=== PATIENT | male | born 1950 | race Caucasian/White ===

== ENCOUNTER 2016-11-29 10:39 | Day surgery (SDC) | payer MEDICARE ==
[~2016-11-29] VITALS: Ht 185.4 cm; Wt 125.0 kg
[~2016-11-29 10:39] MED LIST: APIX5TAB PO; ASPI1TAB69 PO; ATOR1TAB18 PO; CARV12.52 PO; FURO1TAB60 PO; FURO1TAB62 PO; GLIP10TA6 PO; SACU1TAB PO; VICT18IN SQ
[2016-11-29] MEDS ORDERED: SODIUM CHLORID 0.9% 500 ML INJ 500 ML IV SCH (11:00)
[2016-11-29 11:14] VITALS: BP 141/97; PULSE 77; RESP 17; TEMP 97.8; O2SAT 100
[2016-11-29] MEDS ORDERED: LORazepam 1 MG TAB SL SCH (11:15)
[2016-11-29] MEDS ORDERED: CHLORHEXIDINE GLUCONATE 2 % 1 PACK (2 CLOTHS) TOPICAL PRN (11:15)
[2016-11-29] MEDS ORDERED: SODIUM CHLORID 0.9% 500 ML IV PRN (11:15)
[2016-11-29] MEDS ORDERED: POVIDONE IODINE 5% (ANTISEPSIS KIT) 4 APPLICATIONS EACH NARE PRN (11:15)
[2016-11-29] MEDS ORDERED: METOPROLOL TARTRATE 25 MG TAB PO PRN (11:15)
[2016-11-29] MEDS ORDERED: INSULIN HUMAN REGULAR 1,000 UNITS/10 ML VIAL SQ PRN (11:15)
[2016-11-29] MEDS ORDERED: LACTATED RINGER'S 1000 ML IV PRN (11:15)
[2016-11-29] MEDS ORDERED: ISOS10TA PO (11:24)
[2016-11-29 11:54] LABS: AUTOMATED NEUTROPHIL # 4.2 TH/MM3 (1.8-7.7); BASOPHIL % 0.8 % (0.0-2.0); EOSINOPHIL # 0.1 TH/MM3 (0-0.4); EOSINOPHIL % 2.2 % (0.0-4.0); HEMO FLAGS DIFF FINAL; LYMPH % 14.9 % (9.0-44.0); LYMPHOCYTE # 0.8 TH/MM3 (1.0-4.8); MEAN CORPUSCULAR HEMOGLOBIN 29.8 PG (27.0-34.0); MEAN CORPUSCULAR HGB CONC 33.5 % (32.0-36.0); MONO % 8.3 % (0.0-8.0); NEUT % 73.8 % (16.0-70.0); PLATELET COUNT 159 TH/MM3 (150-450); RED BLOOD COUNT 5.06 MIL/MM3 (4.50-5.90); RED CELL DISTRIBUTION WIDTH 14.5 % (11.6-17.2); WHITE BLOOD COUNT 5.6 TH/MM3 (4.0-11.0)
[2016-11-29 12:04] LABS: APTT (PATIENT) 27.6 SEC (24.3-30.1); PROTHROMBIN TIME - PATIENT 10.9 SEC (9.8-11.6)
[2016-11-29 12:06] LABS: BICARBONATE 26.9 MEQ/L (21.0-32.0); POTASSIUM 4.2 MEQ/L (3.5-5.1)
[2016-11-29] MEDS ORDERED: fentaNYL CITRATE 250 MCG/5 ML AMP ONE (15:06)
[2016-11-29] MEDS ORDERED: HEPARIN-D5W 25,000 U/250 ML 250 ML ONE (15:07)
[2016-11-29] MEDS ORDERED: ISOPROTERENOL HCL 1 MG/5 ML AMP ONE (15:07)
[2016-11-29] MEDS ORDERED: PROTAMINE SULFATE 50 MG/5 ML VIAL ONE ×2 (15:07→17:39)
[2016-11-29] MEDS ORDERED: HEPARIN SODIUM - IV 10,000 UNITS/10 ML VIAL ONE (15:07)
[2016-11-29] MEDS ORDERED: LEVOFLOXACIN 500 MG PREMIX INJ 100 ML IV ONE (15:07)
[2016-11-29] MEDS ORDERED: HEPARIN-NS/PF INJ 2,000 ML ONE (15:08)
[2016-11-29] MEDS ORDERED: VANCOMYCIN HCL 1000 MG VIAL ONE (16:12)
--- NOTE | 2016-11-29 17:53 | CATHPROC ---
[facility] HIS Report Study Information Study Number Admission Scheduled Start Study Start [id number] Nov 29 2016 10:39AM 11/29/2016 Nov 29 2016 2:44PM Amber Service Electrophysiology Study Admit Source Facility Department Other [facility] - Repairer Physician and Clinical Staff Initial Coni Gilliland Transport Pilot Aguilar Nails,RT(R) Other Anesthesia, ULTIMATE HOOPS REFEREE Recorder Genia Quijano,RN Scrub Leonarda Shields,WEB CONSULTANT TECH2 Procedures Performed Procedure Location (Site) Vessel Name Ablation Procedure Cardioversion ICE CATHETER INSERT RA Atruim RF Ablation LT. ATRIUM LT. [facility] Equipment Time [employer] Worker Description Size Mfg Part Number Used/Scraped NEEDLE, TRANSSEPTAL NRG 98 15:18 [facility] [id number] Used C1 [employer]/ EP 15:18 KIT, TRANSDUCER / AFIB [id number] Used PACER [id number] CATHETER, TACTICATH ABLAT BUNDLE 15:18 BUNDLE-ST. TAE Used 65 BUNDLE *[id number] BUNDLE 17543-MEACDE CATHETER, FR7 OPTIMA SPIRAL 15:18 BUNDLE-ST. TAE FR7 *[id number]- Used BUNDLE BUNDLE [id number] 15:18 BUNDLE-ST. TAE CATHETER, JSN, QUAD BUNDLE FR 5 *[id number]- Used BUNDLE [id number] 15:18 BUNDLE-ST. TAE CATHETER, JSN, QUAD BUNDLE FR 5 *[id number]- Used BUNDLE 98887-[id number] SET, [place]OL [place] TUBING 15:18 BUNDLE-ST. TAE *[id number]- Used BUNDLE BUNDLE SHEATH, FR8.5 STEERABLE SM 15:18 BUNDLE-ST. TAE 71CM [id number] Used 71CM BUNDLE COVER, TRANSDUCER CABLE 15:18 [employer] [id number] Used ACUNAV 15:18 CORDIS/PACER SHEATH, FR10 PIETER 11CM FR 10 [id number] Used 15:18 CORDIS/PACER SHEATH, FR9 PIETER 11CM FR 9 [id number] Used [id number] 15:18 [employer] PACK, CCL CUSTOM * Used *[id number] 15:18 MEDLINE PACER BAUER, LIMB * 8300 *[id number] Used [id number] 15:18 [employer] MEDICAL SHEATH, FR4.5 PRELUDE 11CM FR 4.5 Used [id number] 15:18 NAMIC TUBING, HIGH PRESSURE 48" 48" Used *[id number] 15:18 NAMIC TUBING, HIGH PRESSURE 48" 48" Used *[id number] 15:18 [employer] MED[employer] BLANKET,WARM AIR CCL * Used *[id number] 15:18 ST. [facility] MEDICAL ELECTRODE KIT, TL X SURFACE * [id number] Used [id number] 15:18 [facility] MEDICAL SHEATH, EPS, FR6 FAST CATH FR 6 Used *[id number] 15:18 [facility] MEDICAL SHEATH, EPS, FR7 FAST CATH FR 7 [id number] Used 106639 15:18 [facility] MEDICAL SHEATH, EPS, FR8 FAST CATH FR 8 Used *[id number] CATHETER, ACUNAV FR10 ICE [id number] 16:08 KATRIN FR 10 Used (KATRIN) *[id number] [facility] PAD, ELECTROSURGICAL 15:18 * [id number] *[id number] Used SURGICAL GROUNDING (BLUE) History: Allergies Allergy Reaction lisinopril codeine trazodone rosuvastatin Labs Hgb (g/dl) Hct (%) RBC (MIL/MM3) WBC (l/cumm) Platelets (thousands) 11.60-17.00 35.00-51.00 4.00-5.90 4.00-11.00 150.00-450.00 15.0 45 5 5.6 159 Glucose (mg/dl) BUN (mg/dl) Creatinine (mg/dl) BUN:Creatinine (1:x) 74.00-106.00 7.00-18.00 0.50-1.30 10.00-20.00 172 23 1.4 16.4 Na (meq/l) K (meq/l) 136.00-145.00 3.50-5.10 136 4.2 INR (PTT:PT) 0.90-1.10 1 Medication Medication Total Dose (Bolus/Oral) Medication Total Dosage/Unit 1% XYLOCAINE 40 mL HEPARIN 76288 units PROTAMINE 80 mg Medications (Bolus/Oral) Medication Time Given Dosage/Unit Administered By Reason 1% XYLOCAINE 11/29/2016 4:00:07 PM 20 mL Coni Mary 20 mL 1% XYLOCAINE given in lab by Coni Mary in Left Groin via Subcutaneous. Ordered by Usman, Muhammad nscy. 1% XYLOCAINE 11/29/2016 4:06:48 PM 20 mL Coni Mary 20 mL 1% XYLOCAINE given in lab by Coni Mary in Right Groin via Subcutaneous. Ordered by Selvin Mary. HEPARIN 11/29/2016 4:12:20 PM 70147 units Anesthesia, ULTIMATE HOOPS REFEREE 61460 units HEPARIN given in lab by Anesthesia, ULTIMATE HOOPS REFEREE in Right Antecubital via Peripheral IV. Ordered by Coni Mary. HEPARIN 11/29/2016 4:28:01 PM 4000 units Anesthesia, ULTIMATE HOOPS REFEREE 4000 units HEPARIN given in lab by Anesthesia, ULTIMATE HOOPS REFEREE in Right Antecubital via Peripheral IV. Ordered Coni Lane. HEPARIN 11/29/2016 4:42:54 PM 3000 units Anesthesia, ULTIMATE HOOPS REFEREE 3000 units HEPARIN given in lab by Anesthesia, ULTIMATE HOOPS REFEREE in Right Antecubital via Peripheral IV. Ordered Coni Lane. HEPARIN 11/29/2016 4:57:22 PM 2000 units Anesthesia, ULTIMATE HOOPS REFEREE 2000 units HEPARIN given in lab by Anesthesia, ULTIMATE HOOPS REFEREE in Right Antecubital via Peripheral IV. Ordered Coni Lane. PROTAMINE 11/29/2016 5:30:00 PM 40 mg Anesthesia, ULTIMATE HOOPS REFEREE As per physicians verb al order 40 mg PROTAMINE given in lab by Anesthesia, ULTIMATE HOOPS REFEREE via Peripheral IV. Ordered by Coni Mary. Reason: As per physicians verbal order. PROTAMINE 11/29/2016 5:43:19 PM 40 mg Anesthesia, ULTIMATE HOOPS REFEREE As per physicians verb al order 40 mg PROTAMINE given in lab by Anesthesia, ULTIMATE HOOPS REFEREE via Peripheral IV. Ordered by Coni Mary. Reason: As per physicians verbal order. Medication (Drip) Medication Time Given Dosage/Unit Concentration/Unit Diluent (ml) Solution HEPARIN DRIP 11/29/2016 4:29:09 PM 1500 units/hr 04943 units 250 D5W 1500 units/hr HEPARIN DRIP given in lab by Anesthesia, ULTIMATE HOOPS REFEREE in Right Antecubital via Peripheral IV. P ump/Drip Flow = 15 ml/hr [place] [address] units in 250 ml. Ordered by Coni Mary. ISUPREL 11/29/2016 5:08:50 PM 5 mcg/min 1 mg 250 NaCl .9 5 mcg/min ISUPREL given in lab by Anesthesia, ULTIMATE HOOPS REFEREE via Peripheral IV. Pump/Drip Flow = 75 ml/hr using NaCl .9 with a concentration of 1 mg in 250 ml. Ordered by Coni Mary. Reason: As per physicians verbal order. LEVAQUIN 11/29/2016 3:30:42 PM 100 mL/hr 500 100 NaCl .9 100 mL/hr LEVAQUIN given by Anesthesia, ULTIMATE HOOPS REFEREE via Peripheral IV. Pump/Drip Flow = 0 ml/hr using NaCl . 9 with a concentration of 500 in 100 ml. Ordered by Coni Mary. Reason: As per physicians verbal order. Initial Case Assessment Cardiovascular HR Rhythm NIBP Chest Pain 89 sf 143/77 0 Edema Present Skin color Skin None Normal Warm Dry Circulatory - Right Pulses Dorsalis Pedis 2 Scale (0,1,2,3,4,d) Circulatory - Left Pulses Dorsalis Pedis 2 Scale (0,1,2,3,4,d) Circulatory - Lower Extremities Color Lower Right Color Lower Left Normal Normal Neurological State Oriented to time-place- Alert Moves all extremities person Respiration - General Respiration Rate SpO2 (%) (B/min) 20 99 Final Case Assessment Cardiovascular HR Rhythm NIBP Chest Pain 85 sr 137/72 0 Edema Present Skin color Skin None Normal Warm Dry Circulatory - Right Pulses Dorsalis Pedis 1 Scale (0,1,2,3,4,d) Circulatory - Left Pulses Dorsalis Pedis 1 Scale (0,1,2,3,4,d) Circulatory - Lower Extremities Color Lower Right Color Lower Left Normal Normal Neurological State Lethargic Moves all extremities Respiration - General Respiration Rate SpO2 (%) O2 (lpm) (B/min) 16 97 50 Respiration - Ventilator Type Intubation Type ET(oral) Chronological Log Time Study Chronological Log 15:03:18 Patient arrived via Bed. 15:03:18 Patient Name, D.O.B, / Armband Verified By R.N. 15:03:19 Consent signed by the physician and the patient and verified by the Repairer staff. 15:03:20 Pre-op and post- op instructions given; patient acknowledges understanding of instructions. 15:03:25 Verbal Stimulation=2 Physical Stimulation=2 Airway=2 Respiration=2 TOTAL=8. (0=absent, 1=li mited, 2=present) 15:03:35 Patient has been NPO for More than 6Hrs. Skin Breakdown- generalized bruising and scabs vicente to knees. Right foot plantar aspect with dsg to lateral ball of foot 15:03:36 and scabs intact to toes. 15:03:37 Patient Warmer Placed on the Table. 15:03:38 Disposable Defibrillator Pads Placed On Patient. 15:03:40 Irene Prominences Protected 15:03:41 A # 20 IV was noted in the Forearm (left). Grade = 0 0.9ns kvo 15:03:42 A # 20 IV was noted in the Forearm (right). Grade = 0 0.9ns kvo 15:03:43 History and physical on the chart or being dictated. Assessment: Initial Case, HR=89 BPM, Rhythm=sf, ZDUW=283/77 mmhg, Chest Pain=0, Edema=None, Col or=Normal, Skin = Warm, Dry Right Pulses: Los Ped=2 Left Pulses: Los Ped=2 15:16:20 Lower Right Extremities: Color=Normal Lower Left Extremities: Color=Normal Neurological: State=Alert, Ox3, DANIELS Respiration: Resp=20 B/min, SpO2=99 % 15:18:04 Table restraints applied according to hospital policy 15:25:05 Dr Chacko arrived for Intubation/General Anesthesia. 14 Fr lan inserted w/o difficulty. C lear yellow urine obtained. 15:26:15 Tachy therapy off by [facility] rep as per Dr Mary 100 mL/hr LEVAQUIN given by Anesthesia, ULTIMATE HOOPS REFEREE via Peripheral IV. Pump/Drip Flow = 0 ml/hr using NaCl .9 with a 15:30:42 concentration of 500 in 100 ml. Ordered by Coni Mary. Reason: As per physicians verbal orde r. 15:33:13 14 FR Lan catheter placed by Dung Quijano RN. 15:35:48 Bilateral groins prepped with 2% chlorhexidine, and draped after a 3 min. waiting time. 15:43:25 MD notified Patient ready 15:53:51 MD arrived. 15:54:30 Reference ECG taken Time Out. Correct patient, procedure, procedure equipment, site and side verified with physicia n present. Time 15:55:44 concurred by MD, individual staff and ULTIMATE HOOPS REFEREE. Time Out #2 - Consents verified, patient in correct position, all results are labled and displa yed, safety precautions 15:55:57 taken, antibiotics administered. Time out concurred by MD, individual staff and ULTIMATE HOOPS REFEREE in procedu re 15:56:21 Case Start 15:56:35 ALEXY in progress. 15:58:23 ALEXY completed, proceeding with A-fib Ablation. 16:00:07 20 mL 1% XYLOCAINE given in lab by Coni Mary in Left Groin via Subcutaneous. Ordered by Coni Mary. 16:01:38 Vascular access was obtained in the Fem Vein (left). 16:01:47 Vascular access was obtained in the Fem Vein (left). 16:01:53 Vascular access was obtained in the Fem Vein (left). 16:02:08 Vascular access was obtained in the Fem Art (left). A SHEATH, FR4.5 PRELUDE 11CM FR 4.5 was advanced into the Fem Art (left) using the Modified Jeannine cristine technique. 16:02:45 0.9ns pressure bag connected. 16:05:00 A SHEATH, EPS, FR6 FAST CATH FR 6 was advanced into the Fem Vein (left) using the Modified Seldinger technique. 16:05:23 A SHEATH, EPS, FR7 FAST CATH FR 7 was advanced into the Fem Vein (left) using the Modified Seldinger technique. 16:06:31 A SHEATH, FR10 PIETER 11CM FR 10 was advanced into the Fem Vein (left) using the Modified S eldinger technique. 16:06:48 20 mL 1% XYLOCAINE given in lab by Coni Mary in Right Groin via Subcutaneous. Ordered b Coni García. 16:07:25 Vascular access was obtained in the Fem Vein (right). 16:07:28 A SHEATH, EPS, FR8 FAST CATH FR 8 was advanced into the Fem Vein (right) using the Modified Seldinger technique. 16:07:42 CATHETER, ACUNAV FR10 ICE (KATRIN) FR 10 Was Postioned. A CATHETER, JSN, QUAD BUNDLE FR 5 was advanced vis Fem Vein (left) and placed in the CS. Placem ent was visually 16:07:57 confirmed under fluoroscopy. A SHEATH, FR8.5 STEERABLE SM 71CM BUNDLE 71CM was exchanged in the Fem Vein (right). This was n ecessary in 16:11:14 order for catheter support. 16:11:24 baylis needle inserted into the agilis 86639 units HEPARIN given in lab by Anesthesia, ULTIMATE HOOPS REFEREE in Right Antecubital via Peripheral IV. Or dered by Usman, 16:12:20 Coni. 16:12:50 A eps was advanced to the right atrium and passed through the septal wall to the left atriu m. with baylis needle A CATHETER, FR7 OPTIMA SPIRAL BUNDLE FR7 was advanced vis Fem Vein (right) and placed in the LA . Placement 16:16:37 was visually confirmed under fluoroscopy. mapping in progress A CATHETER, TACTICATH ABLAT 65 BUNDLE was advanced vis Fem Vein (right) and placed in the LA. P lacement was 16:25:03 visually confirmed under fluoroscopy. 16:27:25 ACT (Normal Range 90-180) = 259 16:28:01 4000 units HEPARIN given in lab by Anesthesia, ULTIMATE HOOPS REFEREE in Right Antecubital via Peripheral IV. Ordered by Coni Mary. 1500 units/hr HEPARIN DRIP given in lab by Anesthesia, ULTIMATE HOOPS REFEREE in Right Antecubital via Peripheral IV. Pump/Drip Flow = 16:29:09 15 ml/hr [place] [address] units in 250 ml. Ordered by Coni Mary. RF Ablation of the LT. ATRIUM with a CATHETER, TACTICATH ABLAT [address] Mary is doing to uch up within 16:30:41 the left atruim to include lipv, lspv, ripv, rspv, and anywhere else in the left atruim. 16:38:26 Activated Clotting Time Drawn 16:42:46 ACT (Normal Range 90-180) = 313 16:42:54 3000 units HEPARIN given in lab by Anesthesia, ULTIMATE HOOPS REFEREE in Right Antecubital via Peripheral IV. Ordered by Coni Mary. 16:43:34 continuing ablation 16:51:28 Activated Clotting Time Drawn 16:56:45 ACT (Normal Range 90-180) = 331 16:57:22 2000 units HEPARIN given in lab by Anesthesia, ULTIMATE HOOPS REFEREE in Right Antecubital via Peripheral IV. Ordered by Coni Mary. continuing ablation 17:00:18 17:04:02 Activated Clotting Time Drawn 17:05:24 ECG rhythm of AF noted. Patient cardioverted at 200 joules. Success synch 17:06:12 Ablation complete. 5 mcg/min ISUPREL given in lab by Anesthesia, ULTIMATE HOOPS REFEREE via Peripheral IV. Pump/Drip Flow = 75 ml/hr using NaCl .9 with 17:08:50 a concentration of 1 mg in 250 ml. Ordered by Coni Mary. Reason: As per physicians verbal o rder. 17:11:07 ACT (Normal Range 90-180) = 335 17:18:50 Isuprel off 17:25:18 Catheters removed without difficulty. 17:25:55 Tachy therapy back on A SHEATH, FR9 PIETER 11CM FR 9 was exchanged in the Fem Vein (right). This was necessary in ord er to achieve 17:27:42 vascular hemostasis. 17:28:34 Ablation procedure performed: AFIB. 17:28:38 EP Procedure was performed. 17:28:56 Sheath(s) left in place, secured, 0.9ns kvo connected, and will be removed in Holding Area 17:30:00 Case End 40 mg PROTAMINE given in lab by Anesthesia, ULTIMATE HOOPS REFEREE via Peripheral IV. Ordered by Coni Mary. R ama: As per 17:30:00 physicians verbal order. 17:30:02 Sterile dressing applied to site 17:30:03 No case complications noted. 17:30:04 Cine recording checked. 17:30:41 PACU called. Spoke to Fredrick 17:30:47 Bedside Report will be given. Assessment: Final Case, HR=85 BPM, Rhythm=sr, SYJC=133/72 mmhg, Chest Pain=0, Edema=None, Pequea r=Normal, Skin = Warm, Dry Right Pulses: Los Ped=1 Left Pulses: Los Ped=1 17:31:54 Lower Right Extremities: Color=Normal Lower Left Extremities: Color=Normal Neurological: State=Lethargic, DANIELS Respiration: Resp=16 B/min, SpO2=97 %, O2=50 lpm, Type=ET(Oral) 17:37:50 Activated Clotting Time Drawn 17:41:11 ACT (Normal Range 90-180) = 260 40 mg PROTAMINE given in lab by Anesthesia, ULTIMATE HOOPS REFEREE via Peripheral IV. Ordered by Coni Mary. Reason: As per 17:43:19 physicians verbal order. 17:49:57 Activated Clotting Time Drawn 17:50:39 Patient moved to stretcher. Pt alert, maew 17:52:30 ACT (Normal Range 90-180) = 132 End Study - Contrast Media Used In Study Contrast Total Opened (mL) Total Used (mL) Total Wasted (mL) Unspecified 0 0 0 End Study - Maximum Contrast Load Max Contrast Load (mL) 450.0 End Study - Radiation Exposure Fluoro Time (minutes) 2.4 End Study - Patient Disposition Complications Transferred To Interventional Outcome No Telemetry Bed successful
[2016-11-29] MEDS ORDERED: FUROSEMIDE 40 MG/4 ML VIAL ONE (17:55)
[2016-11-29] MEDS ORDERED: DO NOT ADM ANY ANTICOAGULANT DRUGS PRN (18:05)
[2016-11-29 19:00] VITALS: BP 158/105; PULSE 83; PULSE 85; RESP 16; TEMP 95.9
[2016-11-29] MEDS ORDERED: BACITRACIN OINT 0.9 GM PKT TOP ONE (19:15)
[2016-11-29] MEDS ORDERED: ONDANSETRON HCL 4 MG/2 ML VIAL IV PUSH PRN (19:15)
[2016-11-29] MEDS ORDERED: METOCLOPRAMIDE HCL 10 MG/2 ML VIAL IV PUSH PRN (19:15)
[2016-11-29] MEDS ORDERED: SODIUM CHLOR 0.9% 250 ML INJ 250 ML IV PRN (19:15)
[2016-11-29] MEDS ORDERED: LORazepam 2 MG/ML VIAL IV PUSH PRN (19:15)
[2016-11-29] MEDS ORDERED: LIDOCAINE HCL 1% 50 ML VIAL INFIL PRN (19:15)
[2016-11-29] MEDS ORDERED: ATROPINE SULFATE 1 MG/ML VIAL IV PUSH PRN (19:15)
[2016-11-29] MEDS ORDERED: oxyCODONE/ACETAMINOPHEN 5 MG/325 MG TAB PO PRN ×2 (19:15)
[2016-11-29 20:00] VITALS: PULSE 84; PULSE 87
[2016-11-29] MEDS: SACUBITRIL/VALSARTAN 24 MG-26 MG TAB PO SCH (20:22)
[2016-11-29] MEDS: CARVEDILOL 12.5 MG TAB PO SCH (20:22)
[2016-11-29 21:00] VITALS: PULSE 86
[2016-11-29] MEDS ORDERED: FUROSEMIDE 20 MG TAB PO SCH (21:00)
[2016-11-29 22:00] VITALS: PULSE 88
[2016-11-29 23:00] VITALS: BP 158/105; PULSE 90; PULSE 91; RESP 16; TEMP 97
[2016-11-30] VITALS (12 sets, daily range): BP systolic 136–143; BP diastolic 90–95; PULSE 76–91; RESP 16–18; TEMP 97.6–98; O2SAT 98
[2016-11-30 06:57] LABS: APTT (PATIENT) 25.7 SEC (24.3-30.1); INTERNATIONAL NORMALIZED RATIO 1.1 RATIO; PROTHROMBIN TIME - PATIENT 11.8 SEC (9.8-11.6)
--- NOTE | 2016-11-30 07:03 | PD.CARD.PN ---
Subjective Subjective Remarks Feels okay. Objective Medications Current Medications Medications (Trade) Dose Ordered Sig/Guille Route Start Time Stop Time Status Last Admin Sodium Chloride 500 ml @ 30 mls/hr [id number] IV 11/29/16 11:00 (Ativan) 1 mg PBX MECHANIC SL 11/29/16 11:15 12/02/16 11:14 11/29/16 15:00 Lactated Ringer's 1,000 ml @ 30 mls/hr Q24H PRN IV 11/29/16 11:15 12/02/16 11:14 Sodium Chloride 500 ml @ 30 mls/hr [id number] PRN IV 11/29/16 11:15 12/02/16 11:14 (Lopressor) 25 mg PBX MECHANIC PRN PO 11/29/16 11:15 12/02/16 11:14 (Betadine 5% Antisepsis Kit) 1 applic PBX MECHANIC PRN EACH NARE 11/29/16 11:15 12/02/16 11:14 (Chlorhexidine 2% Cloth) 3 pack PBX MECHANIC PRN TOPICAL 11/29/16 11:15 12/02/16 11:14 (NovoLIN R INJ) See Protocol Table ... PBX MECHANIC PRN SQ 11/29/16 11:15 12/02/16 11:14 (Percocet 5-325 Mg) 1 tab Q4H PRN PO 11/29/16 19:15 (Percocet 5-325 Mg) 2 tab Q4H PRN PO 11/29/16 19:15 (Ativan Inj) 0.5 mg UNSCH PRN IV PUSH 11/29/16 19:15 11/30/16 19:14 (Atropine Inj) 0.5 mg UNSCH PRN IV PUSH 11/29/16 19:15 Sodium Chloride 250 ml @ 500 mls/hr ONCE PRN IV 11/29/16 19:15 11/30/16 19:14 (Reglan Inj) 10 mg Q4H PRN IV PUSH 11/29/16 19:15 (Zofran Inj) 4 mg Q4H PRN IV PUSH 11/29/16 19:15 (Xylocaine 1% Inj (50 ml)) 10 ml UNSCH PRN INFIL 11/29/16 19:15 11/30/16 19:14 (Eliquis) 5 mg BID PO 11/30/16 21:00 (Coreg) 12.5 mg BID PO 11/29/16 21:00 11/29/16 20:22 (Lasix) 20 mg HS PO 11/29/16 21:00 11/29/16 20:22 (Glucotrol) 10 mg TIDAC PO 11/30/16 08:00 (Isordil) 10 mg DAILY PO 11/30/16 09:00 (Entresto 24-26 Mg) 1 tab BID PO 11/29/16 21:00 11/29/16 20:22 Patient Own Medication PT OWN MED: Liraglut... DAILY SQ 11/30/16 09:00 Future Hold Miscellaneous Information ALL NURSING DEPARTME... UNSCH PRN .XX 11/29/16 18:05 11/30/16 18:04 Vital Signs / I&O Vital Signs Date Time Temp Pulse Resp B/P (MAP) Pulse Ox O2 Delivery O2 Flow Rate FiO2 11/30/16 06:11 91 11/30/16 05:00 90 11/30/16 04:00 90 11/30/16 03:00 90 11/30/16 03:00 97.6 76 16 136/90 (105) 11/30/16 02:00 90 11/30/16 01:00 90 11/30/16 00:00 91 11/29/16 23:00 97.0 91 16 158/105 (122) 11/29/16 23:00 90 11/29/16 22:00 88 11/29/16 21:00 86 11/29/16 20:00 87 11/29/16 19:25 97.1 81 17 131/79 (96) 96 Nasal Cannula 4 11/29/16 19:00 80 15 126/80 (95) 96 Nasal Cannula 4 11/29/16 19:00 95.9 85 16 158/105 (122) 11/29/16 18:45 79 16 137/83 (101) 96 Nasal Cannula 4 11/29/16 18:30 96.0 79 16 135/83 (100) 96 Nasal Cannula 4 11/29/16 18:15 80 16 138/97 (111) 93 Nasal Cannula 4 11/29/16 18:02 95.9 85 14 161/97 (118) 92 Nasal Cannula 4 11/29/16 11:14 97.8 77 17 141/97 (112) 100 I/O 11/29/16 11/29/16 11/29/16 11/30/16 11/30/16 11/30/16 07:00 15:00 23:00 07:00 15:00 23:00 Intake Total 840 ml Output Total 650 ml Balance 190 ml Intake Oral 840 ml Output Urine Total 650 ml Physical Exam GENERAL: Well-nourished, well-developed patient. SKIN: Warm and dry. Groin sites soft without bruising or bleeding. HEAD: Normocephalic. EYES: No scleral icterus. No injection or drainage. NECK: Supple, trachea midline. No JVD or lymphadenopathy. CARDIOVASCULAR: Regular rate and rhythm without murmurs, gallops, or rubs. RESPIRATORY: Breath sounds equal bilaterally. No accessory muscle use. GASTROINTESTINAL: Abdomen soft, non-tender, nondistended. EXTREMITIES: No cyanosis, or edema. NEUROLOGICAL: Awake, alert, and oriented x 3. Non-focal. Laboratory Laboratory Tests Test 11/29/16 11:05 11/30/16 06:05 White Blood Count 5.6 TH/MM3 Red Blood Count 5.06 MIL/MM3 Hemoglobin 15.1 GM/DL Hematocrit 45.0 % Mean Corpuscular Volume 89.0 FL Mean Corpuscular Hemoglobin 29.8 PG Mean Corpuscular Hemoglobin Concent 33.5 % Red Cell Distribution Width 14.5 % Platelet Count 159 TH/MM3 Mean Platelet Volume 8.8 FL Neutrophils (%) (Auto) 73.8 % Lymphocytes (%) (Auto) 14.9 % Monocytes (%) (Auto) 8.3 % Eosinophils (%) (Auto) 2.2 % Basophils (%) (Auto) 0.8 % Neutrophils # (Auto) 4.2 TH/MM3 Lymphocytes # (Auto) 0.8 TH/MM3 Monocytes # (Auto) 0.5 TH/MM3 Eosinophils # (Auto) 0.1 TH/MM3 Basophils # (Auto) 0.0 TH/MM3 CBC Comment DIFF FINAL Differential Comment Prothrombin Time 10.9 SEC 11.8 SEC Prothromb Time International Ratio 1.0 RATIO 1.1 RATIO Activated Partial Thromboplast Time 27.6 SEC 25.7 SEC Blood Urea Nitrogen 23 MG/DL Creatinine 1.41 MG/DL Random Glucose 172 MG/DL Calcium Level 8.6 MG/DL Sodium Level 136 MEQ/L Potassium Level 4.2 MEQ/L Chloride Level 103 MEQ/L Carbon Dioxide Level 26.9 MEQ/L Anion Gap 6 MEQ/L Estimat Glomerular Filtration Rate 50 ML/MIN Assessment and Plan Problem List: (1) Atrial fibrillation ICD Codes: I48.91 - Unspecified atrial fibrillation Status: Acute Plan: Normal sinus rhythm on telemetry status post ablation. (2) S/P ablation of atrial fibrillation ICD Codes: Z98.890 - Other specified postprocedural states; Z86.79 - Personal history of other diseases of the circulatory system Status: Acute Plan: Discharge home, continue eliquis. Follow-up with Dr. Mary in 3 weeks per my discussion with him. Problem Qualifiers (1) Atrial fibrillation: Qualified Codes: I48.0 - Paroxysmal atrial fibrillation Christina Soliman Nov 30, 2016 07:03
[2016-11-30] MEDS ORDERED: glipiZIDE 10 MG TAB PO SCH (08:00)
[2016-11-30] MEDS: CARVEDILOL 12.5 MG TAB PO SCH (08:10)
[2016-11-30] MEDS: SACUBITRIL/VALSARTAN 24 MG-26 MG TAB PO SCH (08:10)
[2016-11-30] MEDS ORDERED: LIRAGLUTIDE 0.6 MG SQ SCH (09:00)
[2016-11-30] MEDS ORDERED: ISOSORBIDE DINITRATE 10 MG TAB PO SCH (09:00)
--- NOTE | 2016-11-30 20:44 | EKG ---
Date Performed: 11/30/2016 Time Performed: 05:40:26 PTAGE: 66 years EKG: Sinus rhythm with 1st degree A-V block Left axis deviation IV conduction defect Possible anteroseptal infarct - a ge undetermined Lateral ST-T changes are nonspecific Low QRS voltages in limb leads Abnormal ECG PREVIOUS TRACING : 11/29/2016 23.23 Compared to prior tracing no significant change DOCTOR: Benjamin Brenner Interpretating Date/Time 11/30/2016 20:40:52
--- NOTE | 2016-11-30 20:47 | EKG ---
Date Performed: 11/29/2016 Time Performed: 23:23:12 PTAGE: 66 years EKG: Sinus rhythm with 1st degree A-V block Left axis deviation Left bundle branch block Possible inferior infarct - a ge undetermined Low QRS voltages in limb leads Abnormal ECG PREVIOUS TRACING : 11/29/2016 11.20 Compared to prior tracing no significant change DOCTOR: Benjamin Brenner Interpretating Date/Time 11/30/2016 20:44:07
[2016-11-30] MEDS ORDERED: APIXABAN 5 MG TABLET PO SCH (21:00)
--- NOTE | 2016-11-30 21:05 | EKG ---
Date Performed: 11/29/2016 Time Performed: 11:20:04 PTAGE: 66 years EKG: atrial fibrillation Left axis deviation IV conduction defect Inferior infarct - age undete rmined Possible septal infarct - age undetermined Lateral ST-T changes may be due to myocardial ische imn Low QRS voltages in precordial leads Abnormal ECG PREVIOUS TRACING : 01/15/2016 05.16 Compared to prior tracing no significant change DOCTOR: Benjamin Brenner Interpretating Date/Time 11/30/2016 20:55:42
--- NOTE | 2016-12-16 12:30 | PD.CARD ---
Atrial Fibrillation Ablation PROCEDURE DATE: Nov 29, 2016 PROCEDURES PERFORMED: 1. Electrophysiology study on Isuprel infusion 2. CS cannulation 3. 3-D mapping 4. Transseptal approach 5. Right and left heart catheterization 6. Intracardiac echo 7. Radiofrequency ablation of atrial fibrillation 8. Pulmonary vein isolation 9. Posterior wall ablation 10. Mitral valve isolation 11. Mitral line creation 12. Left atrial tachycardia ablation 13. Roof line creation 14. Floor line creation 15. Anterior wall ablation 16. Cardioversion INDICATIONS FOR THE PROCEDURE Mr. Ferguson is a 66-year-old male with atrial fibrillation referred for electrophysiology study and ablation. The patient is symptomatic and on anticoagulation. The risks, the nature and the benefits of the procedure were clearly stated to him. The risks include pneumothorax, cardiac perforation, stroke, need for open heart surgery and even . The patient understood and agreed to proceed. DESCRIPTION OF THE PROCEDURE IN DETAIL As written informed consent was obtained prior to esophageal echocardiogram, the patient was kept on the table where he was prepped and draped in the usual sterile fashion. Conscious sedation was initiated and maintained throughout the procedure by the anesthesiologist. Once sedation was verified, the right and left inguinal areas were anesthetized with 2% Xylocaine. Using modified Seldinger technique, the left femoral vein was cannulated on three occasions, three guidewires were advanced. Over the wire a 6, 7 and a 10-Djiboutian Hemaquet were advanced. Then the left femoral artery was cannulated on one occasion, one guidewire was advanced. Over the wire a 4-D[place]ib[place]ian Hemaquet was advanced. Then the right femoral vein was cannulated on one occasion, one guidewire was advanced. Over the wire a 8-D[place]ib[place]ian Hemaquet was advanced. Then under fluoroscopic guidance through the 6 and 7-Djiboutian Hemaquet, two 5-D[place]iboutian Mariam curved quadripolar electrophysiology catheters were advanced and placed around the His as well as coronary sinus. Basic interval was measured. The patient was in atrial fibrillation. Through the 10-Djiboutian Hemaquet, a [employer] Chaudhari AcuNav intracardiac echo catheter was advanced and placed at the right atrium. Multiple view was obtained. There is no pericardial effusion, pulmonary vein was seen, atrial septal was visualized. Then the 8-Djib[place]ian Hemaquet in the right femoral vein was exchanged for Agil[employer] transseptal sheath that was placed all the way to the superior vena cava. Through the sheath a Jenniffer needle was advanced, then the sheath, the dilator and the needle were progressed until foci engaged. Once engaged, the needle was advanced. RF was delivered for 2 seconds. I was able to cross into the left atrium. Once the needle crossed, the dilator was advanced. Once the dilator crossed, the sheath was advanced. Once the sheath crossed, the dilator and the needle were removed. At this point I did flush the system and fluid movement was seen in the left atrium the indicates the sheath is in good position. The patient already received 10,000 units of heparin. The goal is to keep an ACT around 350 during ablation. Then through the sheath a St. Tae 20 pulse circumferential catheter was advanced. Using [employer] endocardial solution mapping system, a two-dimensional configuration of the left atrium was obtained. Points were taken at the left superior and inferior veins, right superior and inferior veins, mitral valve, and appendages. Then through the sheath a St. Tae TactiCath 65cm 3.5mm irrigated tipped mapping and radiofrequency ablation catheter was advanced. Esophageal probe was placed temperature monitoring during ablation. When it increased to 0.5 degrees Celsius above baseline, I moved to a different area of the atrium. First I did isolate the left superior and inferior vein. I did make a big stockbridge around the veins. Posterior was ablated. Then a roof line was created, a floor line was created, a mitral line was isolated, then the mitral valve was isolated. At that point the patient was in left atrial tachycardia. I did create a line from the floor to the roof area, passing by the left atrial appendage. Then the right superior and inferior veins were isolated. I did remap the atrium. There is no significant signal in the atrium. At this point I decided to proceed with cardioversion. A 200 sync biphasic joule was delivered that converted the patient into sinus rhythm. At that point I did advance the circumferential catheter again into the vein. There was no signal into the vein, pacing from the vein showed no conduction to the atrium. Isuprel infusion was initiated at 10 mcg for 15 minutes. No tachyarrhythmia was induced, post Isuprel no tachyarrhythmia was induced. At that point the procedure was complete. All catheters were removed, atrial septal sheath was exchanged for 9-Djiboutian Hemaquet, intracardiac echo showed no pericardial effusion. There is still good flow in the pulmonary vein. The patient is going to be transferred to the recovery room. No incident report. The patient tolerated the procedure. Blood loss was minimal. FINDINGS 1. Electrocardiogram: At baseline the patient was in atrial fibrillation, post procedure the patient was in sinus rhythm. 2. Basic interval: Base cycle length was around 580. Post ablation she was around 860 milliseconds. AH at 124 and HV at 80 milliseconds. 3. Tachyarrhythmia: Atrial fibrillation was mapped and ablated. Atrial tachycardia was ablated. The ablation was successful. CONCLUSION Successful electrophysiology study, mapping, radiofrequency ablation of atrial fibrillation, left atrial tachycardia, pulmonary vein isolation, posterior ablation, mitral valve isolation, mitral line creation, roof line creation, floor line creation, left atrial tachycardia, and cardioversion. COMMENTS AND RECOMMENDATIONS The patient is going to be transferred to the telemetry unit. Will be observed and when stable can be discharged home. Coni Mary MD Dec 16, 2016 12:30
== END 2016-11-30 10:05 | disposition home or self-care (01) ==
LOC: HDOC 10:39 → HDIC 10:40 → HCIS 19:29 → HDOC 11-30 10:05
PROVIDERS: ATTEND Internal Medicine Interventional Cardiology
DX: I48.0 Paroxysmal atrial fibrillation (principal); R94.31 Abnormal electrocardiogram [ECG] [EKG]; E11.9 Type 2 diabetes mellitus without complications; Z79.4 Long term (current) use of insulin; Z79.01 Long term (current) use of anticoagulants
CPT/HCPCS: 00537; 80048; 82948; 85002; 85025; 85610; 85730; 86850; 86900; 86901; 92960; 93005; 93312; 93320; 93325; 93613; 93623; 93656; 93662; C1730; C1731; C1732; C1759; C1766; C2630; J1644; J1940; J1956; J2720; J3010; J3370

== ENCOUNTER 2017-06-13 08:59 | Emergency (ER) | payer MEDICARE ==
[~2017-06-13] VITALS: Ht 185.4 cm; Wt 122.5 kg
[~2017-06-13 08:59] MED LIST changes: -ASPI1TAB69 PO; -ATOR1TAB18 PO; -FURO1TAB60 PO; +ISOS10TA PO
[2017-06-13 09:07] VITALS: BP 116/61; PULSE 77; RESP 18; TEMP 99.4; O2SAT 98
--- NOTE | 2017-06-13 09:58 | PD ---
HPI Chief Complaint: Fall Time Seen by Provider: 09:35 Travel History International Travel<30 days: No Contact w/Intl Traveler<30days: No Traveled to known affect area: No History of Present Illness HPI 66-year-old male presents to the ED for evaluation of ~3 month history of 10/ 10 low back pain, radiating into the right hip. Onset after the patient fell 3 steps and landed on his buttocks. He describes the pain as "zinging", radiating down the back of the right leg. He endorses weakness of the right leg as well as tingling in the foot and right groin. He endorses 2 episodes of urinary incontinence since his injury. He treated at home with Tylenol with mild improvement of his symptoms. He has not had any evaluation of the pain until today. PFSH Past Medical History Hx Anticoagulant Therapy: Yes Arthritis: No Asthma: No Atrial Fibrillation: Yes Autoimmune Disease: No Blood Disorders: No Anxiety: No Depression: No Heart Rhythm Problems: Yes (hx of a -fib) Cancer: No Cardiac Catheterization: Yes (ONE STENT, DEFIB IMPLANT REVISED 2015) Cardiovascular Problems: Yes (HTN; 1 STENT; QUAD BYPASS;AFIB,CAD,AICD, HYPERLIPIDEMIA) High Cholesterol: Yes Chemotherapy: No Chest Pain: No Congestive Heart Failure: Yes COPD: No Cerebrovascular Accident: No Coronary Artery Disease: Yes Diabetes: Yes (TYPE 2 ) Patient Takes Glucophage: No Diminished Hearing: No Endocrine: Yes Gastrointestinal Disorders: Yes GERD: No Glaucoma: No Genitourinary: Yes Headaches: No Hepatitis: No Hiatal Hernia: No Hypertension: Yes Immune Disorder: No Implanted Vascular Access Dvce: Yes Kidney Stones: Yes Medical other: Yes ( DIABETIC ULCERS MELANY. FEET (SOLES)) Musculoskeletal: No Neurologic: No Psychiatric: No Reproductive: No Respiratory: No Integumentary: Yes (SCATTERED WOUNDS AND BRUISES TO BILATERAL ARMS AND KNEES/ LEGS) Migraines: No Myocardial Infarction: Yes Radiation Therapy: No Renal Failure: No Seizures: No Sickle Cell Disease: No Sleep Apnea: No Thyroid Disease: No Ulcer: Yes (FEET) Influenza Vaccination: Yes ?: Not Past Surgical History Abdominal Surgery: No AICD: Yes Appendectomy: No Arteriovenous Shunt: No Body Medical Devices: penile implant, DEFIBRILLATOR Cardiac Surgery: Yes (CABG) Cholecystectomy: No Coronary Artery Bypass Graft: Yes (05/2010 4- vessels) Coronary Stent: Yes Ear Surgery: No Endocrine Surgery: No Eye Surgery: No Genitourinary Surgery: Yes (penile implant) Gynecologic Surgery: No Insulin Pump: No Joint Replacement: No Oral Surgery: No Pacemaker: No Thoracic Surgery: No Tonsillectomy: Yes Other Surgery: Yes (ablation for a-fib X2) Social History Alcohol Use: No Tobacco Use: No Substance Use: No Allergies-Medications (Allergen,Severity, Reaction): Coded Allergies: codeine (Unverified Allergy, Severe, 06/13/17) lisinopril (Unverified Allergy, Intermediate, 06/13/17) rosuvastatin (Unverified Allergy, Intermediate, 06/13/17) trazodone (Unverified Allergy, Intermediate, 06/13/17) Reported Meds & Prescriptions Reported Meds & Active Scripts Active Flexeril (Cyclobenzaprine HCl) 10 Mg Tab 10 Mg PO TID Reported Isosorbide Dinitrate 10 Mg Tab 10 Mg PO DAILY Lasix (Furosemide) 20 Mg Tab 20 Mg PO HS Victoza Inj (Liraglutide Inj) 18 Mg/3 Ml Pen 0.6 Mg SQ DAILY Glipizide 10 Mg Tab 10 Mg PO TIDAC Take 30 minutes before a meal Entresto (Sacubitril-Valsartan) 24-26 Mg Tab 1 Tab PO BID Eliquis (Apixaban) 5 Mg Tab 5 Mg PO BID Carvedilol 12.5 Mg Tab 12.5 Mg PO BID Review of Systems Except as stated in HPI: all other systems reviewed are Neg Physical Exam Narrative GENERAL: Well-nourished, well-developed white male in no acute distress. SKIN: Focused skin assessment warm/dry. HEAD: Normocephalic. EYES: No scleral icterus. No injection or drainage. NECK: Supple, trachea midline. No JVD or lymphadenopathy. CARDIOVASCULAR: Regular rate and rhythm without murmurs, gallops, or rubs. RESPIRATORY: Breath sounds clear and equal bilaterally. No accessory muscle use. GASTROINTESTINAL: Abdomen soft, non-tender, nondistended. Active bowel sounds. MUSCULOSKELETAL: No cyanosis, or edema. 5/5 strength with dorsiflexion, plantarflexion, knee and hip flexion and bilateral lower extremities. Straight leg raise positive on the right. Neurovascularly intact distally. BACK: No obvious deformity. No CVA tenderness. Midline tenderness to palpation in the lumbar spine. Tenderness to palpation over the sciatic notch. Data Data Last Documented VS Vital Signs Date Time Temp Pulse Resp B/P (MAP) Pulse Ox O2 Delivery O2 Flow Rate FiO2 06/13/17 11:03 16 06/13/17 09:07 99.4 77 116/61 (79) [address] Lumb Spine W/O Contrast (06/13/17 09:56) Acetamin-Hydrocod 325-7.5 Mg ([place] 7.5 (06/13/17 10:00) Cyclobenzaprine (Flexeril) (06/13/17 10:00) Hip, Uni(Ap&Lat) Wo Ap Pelvis (06/13/17 09:58) Hip, Uni(Ap&Lat) Wo Ap Pelvis (06/13/17 ) Ed Discharge Order (06/13/17 11:32) [facility] Medical Decision Making Medical Screen Exam Complete: Yes Emergency Medical Condition: Yes Differential Diagnosis Sciatica versus lumbar radiculopathy versus compression fracture versus cauda equina syndrome versus other Narrative Course 66-year-old male presents to the ED for evaluation of ~3 month history of 10/ 10 low back pain, radiating into the right hip. Onset after the patient fell 3 steps and landed on his buttocks. He describes the pain as "zinging", radiating down the back of the right leg. He endorses weakness of the right leg , tingling in the foot and right groin, 2 episodes of urinary incontinence since his injury. He treated at home with Tylenol with mild improvement of his symptoms. He has not had any evaluation of the pain until today. Vitals reviewed. On exam the patient has tenderness of the midline lumbar spine as well as the right sciatic notch. Tender to palpation of the anterior lateral right hip. Straight leg test positive on the right. 5/5 strength in the lower extremities bilaterally. Patient was administered Flexeril and [place] by mouth. X-ray of the right hip reveals mild osteoarthritis. CT of the lumbar spine reveals No fracture, subluxation or convincing evidence of an acute disc herniation. Multilevel degenerative changes with mild degrees of foraminal and/ or spinal stenosis. Results per radiology read. On recheck the patient states his pain is gone. Patient takes several medications that interact with NSAIDs, steroids and narcotics. He is prescribed a short course of Flexeril, instructed to use extra strength Tylenol as directed on the label in conjunction with return to normal, gentle activity and follow-up with his primary care provider. He was provided with a copy of his CT report. He indicated understanding of the instructions and is agreeable to care plan. He is stable and discharged home. Diagnosis Primary Impression: Low back pain with right-sided sciatica Qualified Codes: M54.41 - Lumbago with sciatica, right side; G89.29 - Other chronic pain Referrals: Primary Care Physician Patient Instructions: Acute Low Back Pain (ED), General Instructions, Sciatica (ED) Additional Instructions: Rest, hydrate. A mix of normal, gentle activity with periods of rest is best for back pain. Warm or cold compresses applied to areas of pain for 10-15 minutes a few times a day may also help to reduce your symptoms. Take medication as prescribed. Do not drive while taking muscle relaxants as they can cause drowsiness. Follow-up with your primary care provider. Return to the ED for worsening symptoms or any urgent or emergent medical condition. Med/Other Pt SpecificInfo: Prescription(s) given Scripts Cyclobenzaprine (Flexeril) 10 Mg Tab 10 MG PO TID for Muscle Spasm, #15 TAB 0 Refills Prov: Cisco Koehler MD 06/13/17 Disposition: 01 DISCHARGE HOME Condition: Stable Kayleigh Rey Jun 13, 2017 09:58
[2017-06-13] MEDS ORDERED: CYCLOBENZAPRINE HCL 10 MG TAB PO ONE (10:00)
[2017-06-13] MEDS ORDERED: ACETAMINOPHEN/HYDROcodone 325 MG/7.5 MG TAB PO ONE (10:00)
--- NOTE | 2017-06-13 10:58 | RADRPT ---
EXAM DATE/TIME: 06/13/2017 10:03 [facility] COMPARISON: No previous studies available for comparison. INDICATIONS : Right hip pain post fall February 2017. MEDICAL HISTORY : Diabetes mellitus type II. Hypercholesterolemia. Renal calculi. CAD. A-fib. Ulcer. SURGICAL HISTORY : Tonsillectomy. CABG. Pacemaker. Penile implant. ENCOUNTER: Initial ACUITY: 4 - 6 months PAIN SCORE: 10/10 LOCATION: Right hip FINDINGS: No fracture demonstrated of the right hip. There is mild osteoarthritis. No acute abnormality seen in the soft tissues. CONCLUSION: Intact right hip. Mild osteoarthritis. Aaron North MD on June 13, 2017 at 10:54 Board Certified Radiologist. This report was verified electronically.
[2017-06-13 11:03] VITALS: RESP 16
--- NOTE | 2017-06-13 11:09 | RADRPT ---
EXAM DATE/TIME: 06/13/2017 10:25 [facility] COMPARISON: No previous studies available for comparison. INDICATIONS : Fell a few months ago. Lower back pain. RADIATION DOSE: 40.23 CTDIvol (mGy) MEDICAL HISTORY : Cardiovascular disease. Hypertension. Diabetes. SURGICAL HISTORY : CABG Defibrillator.Coronary artery stent. ENCOUNTER: Initial ACUITY: 3 months PAIN SCALE: 7/10 LOCATION: spine TECHNIQUE: Volumetric scanning of the lumbar spine was performed. Multiplanar reconstructions in the sagittal, coronal and oblique axial planes were performed. Using automated exposure control and adjustment of the mA and/or kV according to patient size, radiation dose was kept as low as reasonably achievable t o obtain optimal diagnostic quality images. DICOM format image data is available electronically for review and comparison. FINDINGS: VERTEBRAE: Normal vertebral body height. ALIGNMENT: No evidence of subluxation. T12-L1: Mild circumflex branch osseous ridging and mild bilateral facet osteoarthritis. No foraminal or spina l stenosis. L1-L2: Mild bilateral facet osteoarthritis. No foraminal or spinal stenosis. L2-L3: The disc has mild loss of height. There is a diffuse disc osteophyte complex and mild to moderate jefferson ateral facet osteoarthritis. No significant foraminal or spinal stenosis. L3-L4: The disc has mild loss of height. There is a small, broad posterior disc osteophyte complex and moder ate bilateral facet osteoarthritis. There is mild spinal and bilateral foraminal stenosis. L4-L5: The disc has mild to moderate loss of height. There is a small moderate, broad/diffuse disc osteophyt e complex and moderate bilateral facet osteoarthritis. There is mild bilateral foraminal stenosis. L5-S1: The disc has mild loss of height. Moderate size right paracentral/foraminal/lateral disc osteophyte c omplex and mild to moderate bilateral facet osteoarthritis present. There is mild right foraminal eliud nosis. CONCLUSION: No fracture, subluxation or convincing evidence of an acute disc herniation. Multilevel degenerative changes with mild degrees of foraminal and/or spinal stenosis as above. Aaron North MD on June 13, 2017 at 11:03 Board Certified Radiologist. This report was verified electronically.
--- NOTE | 2017-06-13 11:15 | RADRPT ---
EXAM DATE/TIME: 06/13/2017 10:03 [facility] COMPARISON: No previous studies available for comparison. INDICATIONS : Left hip pain post fall February 2017. MEDICAL HISTORY : Hypercholesterolemia. Renal calculi. Diabetes mellitus type II. CAD. A-fib. Ulcer. SURGICAL HISTORY : Tonsillectomy. Pacemaker. CABG. Penile implant. ENCOUNTER: Initial ACUITY: 4 - 6 months PAIN SCORE: 5/10 LOCATION: Left hip FINDINGS: A two view examination of the left hip was performed. The primary and secondary trabecular pattern o f the femoral neck is intact. Mild joint space narrowing and marginal osteophytosis. The acetabulum is grossly intact. CONCLUSION: Intact left hip. Mild osteoarthritis. Aaron North MD on June 13, 2017 at 11:12 Board Certified Radiologist. This report was verified electronically.
[2017-06-13] MEDS ORDERED: CYCL10TA PO (11:31)
== END 2017-06-13 12:00 | disposition home or self-care (01) ==
LOC: PHEFT 08:59
DX: M54.41 Lumbago with sciatica, right side (principal); R53.1 Weakness; M16.11 Unilateral primary osteoarthritis, right hip; R20.2 Paresthesia of skin; I48.91 Unspecified atrial fibrillation; I25.10 Atherosclerotic heart disease of native coronary artery without angina pectoris; E78.5 Hyperlipidemia, unspecified; I11.0 Hypertensive heart disease with heart failure; I50.9 Heart failure, unspecified
CPT/HCPCS: 72131; 73502; 99284